=== PATIENT | male | born 1985 | race American Indian/Alaskan Native ===

== ENCOUNTER 2019-04-20 20:52 | Emergency (ER) | payer OTHER ==
[2019-04-20 21:03] VITALS: BP 138/75
--- NOTE | 2019-04-20 21:29 | Emergency Department Report ---
Blank Doc - Documentation Documentation: 33 y o male presents with fever, loss of appetite, night sweats x 1 week, coughing started today states [facility] visit came back middle of February labs ordered ACC eval
[2019-04-20] MEDS ORDERED: TYLENOL ONE (21:32)
[2019-04-20] MEDS ORDERED: TYLENOL PO ONE (21:35)
[2019-04-20 21:39] LABS: Hematocrit 40.8 % (35.5-45.6); Hemoglobin 13.8 gm/dl (11.8-15.2); Mean Corpuscular HGB Conc 34 % (32-34); Mean Corpuscular Volume 90 fl (84-94); Platelet Count 167 K/mm3 (140-440); Red Blood Count 4.53 M/mm3 (3.65-5.03); Red Cell Distribution Width 13.3 % (13.2-15.2)
[2019-04-20 21:54] LABS: Calcium 9.3 mg/dL (8.4-10.2)
[2019-04-20 22:20] LABS: Band Neutrophils # (Manual) 0.5 K/mm3; Platelet Estimate Consistent w Auto; RBC Morphology Normal; Total Cells Counted 100
--- NOTE | 2019-04-20 22:49 | XRay Report ---
PROCEDURE: XR CHEST ROUTINE 2V TECHNIQUE: PA and lateral chest radiographs were obtained. HISTORY: fever COMPARISONS: None. FINDINGS: There is no evidence of infiltrate, pneumothorax or pleural fluid collection. The cardiomediastinal silhouette is normal in appearance. The bony structures are unremarkable. IMPRESSION: 1. No evidence of an acute pulmonary process. This document is electronically signed by Dilcia Vallejo MD., Apr 20 2019 10:48:08 PM ET
[2019-04-20 23:51] LABS: Bilirubin,Urine NEG (Negative); Blood,Urine SM (Negative); Color,Urine Yellow (Yellow); Protein,Urine <15 mg/dL mg/dL (Negative); Urobilinogen,Urine < 2.0 mg/dL (<2.0)
--- NOTE | 2019-04-20 23:51 | Emergency Department Report ---
ED General Adult HPI - General Chief complaint: Fever Stated complaint: LOSS OF APPETITE/FEVER Time Seen by Provider: 04/20/19 21:20 Source: patient Mode of arrival: Ambulatory Limitations: No Limitations - History of Present Illness Initial comments: 33-year-old [place] male presents with department complaining of a one-week history fatigue, decreased appetite, increased thirst, fever sensation with a MAXIMUM TEMPERATURE of with the recalls as being 102.5 last seen 2 and half days ago, but has improved since that time. Reports occasional sweats and a nonproductive cough ache pain to the right chest 2 days ago. No hemoptysis, hematemesis, hematochezia, no diarrhea, no dysuria, no abdominal pain. No rashes noted. He last traveled out of country on March 17 to the [place]. Reports no headache or dizziness. Pain at current is 0 of 10 -: week(s) (1) Radiation: non-radiation Severity scale (0 -10): 0 Quality: aching Consistency: constant Improves with: none, immobilization Worsens with: none Associated Symptoms: malaise. denies: diaphoresis, fever/chills, loss of appetite, rash, shortness of breath, weakness Treatments Prior to Arrival: none - Related Data Previous Rx's Medication Instructions Recorded Last Taken Type guaiFENesin/CODEINE [Robitussin AC] 5 ml PO Q6H PRN #120 ml 04/21/19 Unknown Rx Allergies Allergy/AdvReac Type Severity Reaction Status Date / Time No Known Allergies Allergy Verified 04/20/19 20:57 ED Review of Systems ROS: Stated complaint: LOSS OF APPETITE/FEVER Other details as noted in HPI Constitutional: denies: chills, fever Eyes: denies: eye pain, eye discharge, vision change ENT: denies: ear pain, throat pain Respiratory: denies: cough, shortness of breath, wheezing Cardiovascular: denies: chest pain, palpitations Endocrine: no symptoms reported Gastrointestinal: denies: abdominal pain, nausea, diarrhea Genitourinary: denies: urgency, dysuria Musculoskeletal: denies: back pain, joint swelling, arthralgia Skin: denies: rash, lesions Neurological: denies: headache, weakness, paresthesias Psychiatric: denies: anxiety, depression Hematological/Lymphatic: denies: easy bleeding, easy bruising ED Past Medical Hx - Past Medical History Previous Medical History?: Yes Hx Asthma: Yes - Surgical History Past Surgical History?: No - Social History Smoking Status: Current Every Day Smoker Substance Use Type: None - Medications Home Medications: Home Medications Medication Instructions Recorded Confirmed Last Taken Type guaiFENesin/CODEINE [Robitussin AC] 5 ml PO Q6H PRN #120 ml 04/21/19 Unknown Rx ED Physical Exam - General Limitations: No Limitations General appearance: alert, in no apparent distress - Head Head exam: Present: atraumatic, normocephalic, normal inspection - Eye Eye exam: Present: normal appearance, PERRL, EOMI. Absent: scleral icterus, conjunctival injection Pupils: Present: normal accommodation - ENT ENT exam: Present: normal exam, mucous membranes moist - Neck Neck exam: Present: normal inspection, full ROM - Respiratory Respiratory exam: Present: normal lung sounds bilaterally. Absent: respiratory distress, wheezes, rales, accessory muscle use, decreased breath sounds - Cardiovascular Cardiovascular Exam: Present: regular rate, normal rhythm. Absent: systolic murmur, diastolic murmur, rubs, gallop - GI/Abdominal GI/Abdominal exam: Present: soft, normal bowel sounds. Absent: distended - Rectal Rectal exam: Present: deferred - Extremities Exam Extremities exam: Present: normal inspection, full ROM, normal capillary refill - Back Exam Back exam: Present: normal inspection, full ROM. Absent: CVA tenderness (R), CVA tenderness (L) - Neurological Exam Neurological exam: Present: alert, oriented X3, CN II-XII intact - Psychiatric Psychiatric exam: Present: normal affect, normal mood - Skin Skin exam: Present: warm, dry, intact, normal color. Absent: rash, diaphoretic, erythema, petechiae, pallor, abrasion ED Course Vital Signs 04/20/19 21:01 Temperature 100.3 F H Pulse Rate 94 H Respiratory 18 Rate Blood Pressure 138/75 O2 Sat by Pulse 99 Oximetry ED Medical Decision Making - Lab Data Result diagrams: 04/20/19 21:27 04/20/19 21:27 - Medical Decision Making 33-year-old male with one-week history of what appears to be a viral-like syndrome with fever which has been improving throughout the fact that his fever has been lessening. He is tolerating orals does have some aches and pains to the flank area and was specifically worried about his kidney function which we discussed in detail. Also discussed the slight elevation in his liver enzymes, which he's been instructed to have reevaluated with Property Supervisor to ensure that there is no continued elevation. Advised to return to the emergency department versus awaiting for the follow-up as we discussed. Critical care attestation.: If time is entered above; I have spent that time in minutes in the direct care of this critically ill patient, excluding procedure time. ED Disposition Clinical Impression: Viral syndrome, Elevated liver enzymes Disposition: TO HOME OR SELFCARE Is pt being admited?: No Does the pt Need Aspirin: No Condition: Stable Instructions: Fever in Adults (ED), Viral Syndrome (ED), DASH Eating Plan (ED) Additional Instructions: She'll follow with listed providers to have your liver enzymes reevaluated. Currently, AST & ALT are at 65 and 67 margin marginal elevation. Prescriptions: guaiFENesin/CODEINE [Robitussin AC] 5 ml PO Q6H PRN #120 ml PRN Reason: Cough Referrals: FANTA GIRARD MD [Primary Care Provider] - 3-5 Days [facility] [Provider Group] - 3-5 Days [facility] [Provider Group] - 3-5 Days
== END 2019-04-21 00:20 | disposition home or self-care (01) ==
LOC: ED 20:52
DX: B34.9 Viral infection, unspecified (principal); R94.5 Abnormal results of liver function studies; J45.909 Unspecified asthma, uncomplicated; F17.200 Nicotine dependence, unspecified, uncomplicated
CPT/HCPCS: 36415; 71046; 80053; 81001; 82140; 85007; 85025